=== PATIENT | female | born 1950 | race Two or more races ===

== ENCOUNTER 2024-06-28 08:11 | Outpatient (CLI) | payer OTHER | END 2024-06-28 08:15 | disposition home or self-care (01) | LOC: NUCLEAR 08:11 | PROVIDERS: ATTEND Obstetrics & Gynecology Gynecologic Oncology | DX: C54.1 Malignant neoplasm of endometrium (principal) | CPT/HCPCS: 78815; A9552 ==

== ENCOUNTER 2025-06-14 07:09 | Outpatient (CLI) | payer OTHER | END 2025-06-14 07:12 | disposition home or self-care (01) | LOC: NUCLEAR 07:09 | PROVIDERS: ATTEND Internal Medicine Hematology & Oncology | DX: C54.1 Malignant neoplasm of endometrium (principal) | CPT/HCPCS: 78816; A9552 ==